=== PATIENT | female | born 1965 | race American Indian/Alaskan Native ===

== ENCOUNTER 2018-10-17 09:19 | Inpatient (IN) | payer MEDICARE, BC ==
--- NOTE | 2018-10-13 11:23 | Anesthesia Consultation ---
Anesthesia Consult and Med Hx Date of service: 10/13/18 - Airway Anesthetic Teeth Evaluation: Good ROM Head & Neck: Adequate Mental/Hyoid Distance: Adequate Mallampati Class: Class III Intubation Access Assessment: Possibly Difficult - Pulmonary Exam CTA: Yes - Cardiac Exam Cardiac Exam: RRR - Pre-Operative Health Status ASA Pre-Surgery Classification: ASA3 Proposed Anesthetic Plan: General - Pulmonary Hx Smoking: No Hx Respiratory Symptoms: No Hx Sleep Apnea: Yes (compliant with CPAP) - Cardiovascular System Hx Hypertension: No Hx Heart Attack/AMI: No - Central Nervous System Hx Neuromuscular Disorder: Yes (sciatic nerve pain, neuropathy) CVA: No Hx Psychiatric Problems: No - Gastrointestinal Hx Gastroesophageal Reflux Disease: Yes (controlled with medications; no symptoms when NPO) - Endocrine Hx Renal Disease: No Hx Liver Disease: No Hx Insulin Dependent Diabetes: No Hx Non-Insulin Dependent Diabetes: No Hx Thyroid Disease: No - Hematic Hx Anemia: No - Other Systems Hx Alcohol Use: Yes (OCCA) Hx Substance Use: No Hx Cancer: No Hx Obesity: Yes (BMI 47) - Additional Comments Anesthesia Medical History Comments: No hx anesthetic complications. Cardiology testing on chart shows EKG NSR (prolonged QTc 479), normal exercise stress test. Patient is currently taking abx for dental abscess. No fevers, chills. Will finish abx course on DOS.
[~2018-10-17 09:19] MED LIST: ANCEF/STERILE WATER 2 GM/20 ML 2 GM/20 ML SYRINGE IV NR; FLAGYL 500 MG/100 ML 500 MG/100 ML BAG IV NR; LACTATED RINGERS 1,000 ML IV SCH; LOVENOX SUB-Q NR; TRANSDERM-SCOP TD SCH
[2018-10-17] MEDS ORDERED: DILAUDID IV PRN (10:02)
[2018-10-17] MEDS ORDERED: NARCAN 0.4 MG/1 ML IV PRN (10:02)
[2018-10-17] MEDS ORDERED: ZOFRAN IV PRN (10:02)
[2018-10-17] MEDS ORDERED: DEMEROL IV PRN (10:02)
[2018-10-17] MEDS ORDERED: SUBLIMAZE IV PRN (10:02)
--- NOTE | 2018-10-17 10:02 | Anesthesia Day of Surgery ---
Anesthesia Day of Surgery - Day of Surgery Patient Examined: Yes Patient H&P Reviewed: Yes Patient is NPO: Yes Beta Blockers: No Cardiac Clearance: No Pulmonary Clearance: No
[2018-10-17] MEDS ORDERED: LOVENOX SUB-Q NR (11:00)
[2018-10-17] MEDS ORDERED: TYLENOL PO NR (11:00)
[2018-10-17] MEDS ORDERED: NEURONTIN PO NR (11:00)
[2018-10-17] MEDS ORDERED: LEVAQUIN 500MG/100ML 500 MG/100 ML BAG IV NR (11:07)
[2018-10-17] MEDS ORDERED: NORCO PO PRN (11:45)
[2018-10-17] MEDS ORDERED: APRESOLINE IV PRN (11:45)
[2018-10-17] MEDS ORDERED: MYLICON PO PRN (11:45)
[2018-10-17] MEDS ORDERED: REGLAN IV PRN (11:45)
[2018-10-17] MEDS ORDERED: ZANAFLEX PO PRN (11:53)
[2018-10-17] MEDS ORDERED: LACTATED RINGERS 1,000 ML IV SCH (12:00)
[2018-10-17] MEDS ORDERED: DIPRIVAN 10 MG/ML IV ONE (12:22)
[2018-10-17] MEDS ORDERED: SUBLIMAZE ONE (12:22)
[2018-10-17] MEDS ORDERED: VERSED ONE (12:34)
[2018-10-17] MEDS ORDERED: FLAGYL 500 MG/100 ML 500 MG/100 ML BAG IV NR (13:00)
[2018-10-17] MEDS ORDERED: XYLOCAINE 1% 20 mL ONE (13:04)
[2018-10-17] MEDS ORDERED: MARCAINE-EPI 0.5%-1:200,000 INFILTRATI ONE ×2 (13:04→13:07)
[2018-10-17] MEDS ORDERED: XYLOCAINE 1% 20 mL INFILTRATI ONE (13:07)
[2018-10-17] MEDS ORDERED: ZOFRAN ONE (14:24)
[2018-10-17] MEDS ORDERED: ROBINUL ONE (14:24)
[2018-10-17] MEDS ORDERED: XYLOCAINE CARDIAC IV ONE (14:24)
[2018-10-17] MEDS ORDERED: DECADRON ONE (14:24)
[2018-10-17] MEDS ORDERED: NEO SYNEPHRINE/NS Syringe(OR USE) IV ONE (14:24)
[2018-10-17] MEDS ORDERED: BLOXIVERZ ONE (14:24)
[2018-10-17] MEDS: ZOFRAN IV PRN (15:45)
--- NOTE | 2018-10-17 15:49 | Operative Report ---
PREOPERATIVE DIAGNOSES: 1. Reflux. 2. Dyspepsia. 3. Weight regain. 4. Status post laparoscopic sleeve gastrectomy. POSTOPERATIVE DIAGNOSES: 1. Reflux. 2. Dyspepsia. 3. Weight regain. 4. Status post laparoscopic sleeve gastrectomy. PROCEDURES: 1. Laparoscopic conversion of sleeve to gastric bypass. 2. Adhesiolysis. 3. Upper endoscopy. 4. Primary umbilical hernia repair. ANESTHESIA: General endotracheal anesthesia. ESTIMATED BLOOD LOSS: Less than 30 mL. SPECIMENS: None. COMPLICATIONS: None. INDICATIONS: The patient is a 53-year-old female, who underwent a laparoscopic sleeve gastrectomy in [address] Hayes. She has since had reflux and weight regain. She wishes for a conversion surgery. The risks, complications, and alternatives were explained to the patient. Informed consent was obtained. DESCRIPTION OF PROCEDURE: The patient was brought to the operating room where she was placed in supine position, underwent general endotracheal intubation. She received preoperative antibiotics and DVT prophylaxis. A timeout was called to ensure proper patient identification, operation. Local analgesia was injected around the umbilical region and a small stab incision was made at the base of the umbilicus. A Veress needle was inserted with insufflation pressures were achieved to 18 mmHg. After this the incision was widened and exchanged for a 12 mm trocar. On intra-abdominal view, there was no intra-abdominal injury. However, I noted omental adhesions around the umbilical port site and an umbilical hernia. An additional 12 mm trocar was placed in the right midclavicular line and 5 mm ports were placed in the right lateral subxyphoid and left lateral quadrant. After this, adhesions were taken down from the anterior abdominal wall using the LigaSure device. Next, the ligament of Treitz was identified and the bowel measured to 50 cm. The bowel was transected at this point with a white load stapler and the staple line cauterized for hemostasis. After that, the bowel was run for 150 cm antegrade and then a jejunojejunostomy was performed. An anti-kink stitch was placed and then the mesenteric defect was closed with running 0 Surgidac suture. After this, a liver retractor was placed. She had moderate adhesions from her sleeve to the anterior abdominal wall as well as the undersurface of the liver. These were taken down with electrocautery. The hiatus was not visible as she had significant adhesions to this. The angle of His was dissected out and then a 30 mL pouch was then created. A retrogastric dissection was then performed with blunt dissection as well as electrocautery. The pouch was created with several blue stapler loads. After this, a medial and lateral stay stitch was placed with 0 Surgidac suture on to the bringing up to Evelyne limb and a gastrojejunostomy was then performed with a white load stapler. The common enterotomy was closed with a 2-layer 2-0 V-Loc suture. After this, a Evelyne limb was clamped and I went above and did an upper endoscopy. There was no bleeding on intraluminal view and there was no leak on the endoscopy. With this, the air was desufflated and the gastroscope was removed. The umbilical fascia was closed with #1 PDS in [id number] fashion after truncating the omentum from the hernia sac. The ports were removed and the incisions were closed with 4-0 Monocryl. Sterile bandages were placed over top. The patient was then awakened, extubated, and left the operating room in stable condition. Counts were correct. FINDINGS: 1. Umbilical hernia. 2. Moderate adhesions from her sleeve. JOB# [id number] ISABELLA/MARY SORIANO
[2018-10-17] MEDS: DILAUDID IV PRN (20:25)
[2018-10-17] MEDS ORDERED: CYMBALTA PO SCH (22:00)
[2018-10-17] MEDS ORDERED: ATARAX PO SCH (22:00)
[2018-10-17] MEDS ORDERED: GEODON PO SCH ×2 (22:00)
[2018-10-18] MEDS: DILAUDID IV PRN (01:45)
[2018-10-18] MEDS: LaMICtal PO SCH ×2 (01:52→09:49)
--- NOTE | 2018-10-18 04:38 | Discharge Summary ---
Providers - Providers Date of Admission: 10/17/18 09:19 Date of discharge: 10/18/18 Attending physician: REGINO JANE 10/18/18 04:21 Consult to Case Management [CONS] Routine Services Needed at Discharge: Home Health Services Comment:: Patient requests home health for assistance at home. Please eval if she is Additional Physician Instructions: eligible Primary care physician: HEMA BARR Hospitalization Reason for admission: postop care Condition: Good Procedures: 10/17/18: Laparoscopic conversion sleeve to RYGB, OSCAR Hospital course: 53F admitted after her operation for routine postop care. She was managed on the general surgical floor. No acute issues overnight. Tolerated a CLD, pain controlled, and dc home in stable condtion. Patient requested consult for Home health. Disposition: DC-01 TO HOME OR SELFCARE Core Measure Documentation - Palliative Care Palliative Care/ Comfort Measures: Not Applicable - Core Measures Any of the following diagnoses?: none - VTE Discharge Requirements Deep Vein Thrombosis/Pulmonary Embolism Present on Admission: No - Acute [place] Discharge Requirements Aspirin at discharge: No Reason for no aspirin on DC: Surgical contraindication - Heart Failure Discharge Requirements LIBRA/ARB for LVSD if EF <40%: Not Applicable - Stroke Discharge Requirements Statin for LDL = or >70 mg/dl on DC: Not Applicable Exam - Physical Exam Narrative exam: GEN: AAO, appears tired HEART: RRR LUNGS: CTAB ABD: Soft, ND, NT, bandages cdi EXT: NO LE edema - Constitutional Vitals: Temp Pulse Resp BP Pulse Ox 97.6 F 78 17 127/78 97 10/18/18 01:17 10/18/18 01:17 10/18/18 01:17 10/18/18 01:17 10/18/18 01:17 Plan Diet: clear liquids Wound: keep clean and dry Special Instructions: no heavy lifting Additional Instructions: f/u Dr Jane as scheduled Follow up with: HEMA BARR JR, MD [Primary Care Provider] - 7 Days
[2018-10-18 05:36] LABS: Basophils % (Auto) 0.1 % (0.0-1.8); Hematocrit 35.7 % (30.3-42.9); Hemoglobin 11.9 gm/dl (10.1-14.3); Lymphocytes # (Auto) 1.5 K/mm3 (1.2-5.4); Lymphocytes % (Auto) 11.5 % (13.4-35.0); Mean Corpuscular HGB Conc 33 % (30-34); Mean Corpuscular Volume 81 fl (79-97); Monocytes # (Auto) 0.8 K/mm3 (0.0-0.8); Monocytes % (Auto) 6.4 % (0.0-7.3); Platelet Count 227 K/mm3 (140-440); Red Blood Count 4.42 M/mm3 (3.65-5.03); Red Cell Distribution Width 17.8 % (13.2-15.2)
[2018-10-18 06:01] LABS: Alanine Aminotransferase 35 units/L (7-56); Albumin 3.9 g/dL (3.9-5); BUN/Creatinine Ratio 13; Blood Urea Nitrogen 8 mg/dL (7-17); Calcium 9.3 mg/dL (8.4-10.2); Hemolysis Index 0
--- NOTE | 2018-10-18 07:38 | Post Anesthesia Evaluation ---
- Post Anesthesia Evaluation Patient Participated: Yes Airway Patent: Yes Stable Respiratory Function: Yes Nausea/Vomiting: No Temp > 96.8F: Yes Pain Manageable: Yes Adequeate Hydration: Yes Anesthesia Complications: No
[2018-10-18] MEDS: ZOFRAN IV PRN (08:30)
[2018-10-18] MEDS ORDERED: PROTONIX PO SCH (10:00)
[2018-10-18] MEDS ORDERED: LOVENOX SUB-Q SCH (10:00)
[2018-10-18 12:09] VITALS: BP 142/91
== END 2018-10-18 12:23 | disposition home health service (06) | DRG 327 ==
LOC: 3A 09:19 → 3B-SURG 16:08
PROVIDERS: ADMIT Specialist; ATTEND Specialist
PROC: 0D164ZA Bypass Stomach to Jejunum, Percutaneous Endoscopic Approach (ICD-10-PCS; principal; 2018-10-17)
PROC: 0DNW4ZZ Release Peritoneum, Percutaneous Endoscopic Approach (ICD-10-PCS; 2018-10-17)
PROC: 0WQF4ZZ Repair Abdominal Wall, Percutaneous Endoscopic Approach (ICD-10-PCS; 2018-10-17)
DX: K95.89 Other complications of other bariatric procedure (principal); Z68.42 Body mass index [BMI] 45.0-49.9, adult; Y84.8 Other medical procedures as the cause of abnormal reaction of the patient, or of later complication, without mention of misadventure at the time of the procedure; E66.01 Morbid (severe) obesity due to excess calories; F32.9 Major depressive disorder, single episode, unspecified; K42.9 Umbilical hernia without obstruction or gangrene; K66.0 Peritoneal adhesions (postprocedural) (postinfection); K21.9 Gastro-esophageal reflux disease without esophagitis; F41.9 Anxiety disorder, unspecified; Y92.098 Other place in other non-institutional residence as the place of occurrence of the external cause; Z98.51 Tubal ligation status; Z83.3 Family history of diabetes mellitus; Z88.0 Allergy status to penicillin; Z88.8 Allergy status to other drugs, medicaments and biological substances
CPT/HCPCS: 36415; 80053; 85025; 88305; G0378; J1100; J1170; J1650; J1956; J2001; J2250; J2370; J2405; J2704; J2710; J3010; J7120

== ENCOUNTER 2019-09-27 08:54 | Outpatient (CLI) | payer MEDICARE ==
[2019-09-27 09:53] LABS: Blood Urea Nitrogen 8 mg/dL (7-17)
--- NOTE | 2019-09-27 12:26 | Cat Scan Report ---
CT abdomen w con INDICATION: Epigastric pain, chronic pain. TECHNIQUE: All CT scans at this location are performed using the following dose modulation technique: Automated exposure control. Helical slices were obtained through the abdomen and pelvis. Intravenous and oral c ontrast are administered. COMPARISON: None available. FINDINGS: Abdomen: No acute abnormality is seen in the lower chest. The heart is mildly enlarged. Changes of prior gastric bypass are noted. There is mild fatty infiltration of the liver. The spleen, pancreas, adrenal glands, and kidneys show no acute abnormality. There is no obstruction, inflammati on, or free air. There is a periumbilical hernia which contains loops of small bowel. There is no obstruction associat ed with this. Pelvis: There is no obstruction or inflammation. There are no abnormal fluid collections. There is no adenopathy. On review of bone windows, no acute osseous abnormalities are seen. IMPRESSION: 1. There is no obstruction, inflammation, or free air. There are no abnormal fluid collections. There is a periumbilical hernia which contains loops of small bowel. There is no obstruction or infla mmation associated with this. There is mild fatty infiltration of the liver. Changes of prior gastric bypass are noted. Signer Name: Naga Rosas MD Signed: 09/27/2019 12:22 PM Workstation Name: [id number]
== END 2019-09-27 08:55 | disposition home or self-care (01) ==
LOC: CT 08:54
PROVIDERS: ATTEND Specialist
DX: K42.9 Umbilical hernia without obstruction or gangrene (principal); K76.0 Fatty (change of) liver, not elsewhere classified; R10.13 Epigastric pain; R10.84 Generalized abdominal pain
CPT/HCPCS: 36415; 74160; 82565; 84520; Q9967